=== PATIENT | male | born 1955 | race Caucasian/White ===

== ENCOUNTER 2016-08-15 05:39 | Inpatient (IN) | payer BC ==
[2016-08-01 12:51] LABS: HEMATOCRIT 45.2 % (42.0-52.0); HEMOGLOBIN 15.9 gm/dL (14.0-18.0); MCH 33.8 pg (26.0-34.0); MCHC 35.2 g/dL (28.0-37.0); RBC 4.7 mil/uL (4.50-6.00); RDW 14.2 % (10.5-14.5); WBC 6.7 thou/uL (4.0-11.0)
[2016-08-01 12:54] LABS: URINE BLOOD NEGATIVE (Negative); URINE COLOR YELLOW; URINE GLUCOSE-RANDOM* NEGATIVE (Negative); URINE KETONES TRACE (Negative); URINE LEUKOCYTES-REFLEX TRACE (Negative); URINE PROTEIN (DIPSTICK) NEGATIVE (Negative); URINE SPECIFIC GRAVITY 1.025 (1.003-1.035)
[2016-08-01 12:56] LABS: URINE BILIRUBIN NEGATIVE (Negative)
[2016-08-01 12:57] LABS: ICTOTEST (BILI CONFIRMATORY) Negative (Negative)
[2016-08-01 13:06] LABS: ALBUMIN 3.6 g/dL (3.4-5.0); CALCIUM 9.3 mg/dL (8.5-10.1); CREATININE 0.9 mg/dL (0.7-1.3); INR 1.2; POTASSIUM 4.3 mmol/L (3.5-5.1); PROTIME 12.9 Seconds (9.3-11.4); TOTAL BILIRUBIN 2.1 mg/dL (<0.1-1.0)
[2016-08-15] VITALS (8 sets, daily range): BP systolic 91–110; BP diastolic 53–68
[~2016-08-15] VITALS: Ht 193 cm; Wt 120.6 kg
--- NOTE | ~2016-08-15 | EKG ---
[address] [address] ELECTROCARDIOGRAM REPORT Name: NELIA MURPHY Room #: PRE IN [facility]#: [id number] Admission: Attend Phys: Kam Silva MD Discharge: Date of : 55 Report #: [id number] THIS REPORT FOR: //name// [facility] Test Date: 2016-08-01 Test Time: 12:53:03 Pat Name: NELIA MURPHY Department: Room: Gender: Supervisor [employer]: ALTON SHELTON : 1955 Requested By: Kam Silva Order Number: [id number] MD: Johnnie Larkin Measurements Intervals [place] Rate: 62 P: 51 UT: 116 QRS: 65 QRSD: 115 T: 67 QT: 451 QTc: 458 Interpretive Statements Sinus rhythm Borderline short UT interval Nonspecific intraventricular conduction delay Probable inferior infarct, old No previous ECG available for comparison Electronically Signed On 08-01-2016 22:03:09 CDT by Johnnie Larkin [email or web address] <ELECTRONICALLY SIGNED> By: Johnnie Larkin MD 08/01/16 [id number] Johnnie [email or web address] MD /[email or web address]
[~2016-08-15 05:39] MED LIST: ALDACTONE100 MG PO; COCONUT OIL1000 MG PO; FISH OIL WITH1 EACH PO; KRILL OIL 1,501 EACH PO; LASIX 40 MG TAB40 M2 PO; LOPRESSOR25 PO; LOPRESSOR50 PO; MEN'S MULTI-VI1 EACH PO; MILK THISTLE500 MG PO; OMEGA 3 FISH O1 EACH PO; PERCOCET 10-321 EACH PO; PROBIOTIC1 EAC1 PO; XARELTO10 MG PO
[2016-08-15] MEDS ORDERED: HYDROCODON-ACE1 EAC7 PO (14:46)
[2016-08-15] MEDS ORDERED: CVS BUFFERED A325 MG PO (14:46)
[2016-08-15] MEDS ORDERED: NEURONTIN 300300 M1 PO (14:47)
[2016-08-15] MEDS ORDERED: MS CONTIN15 MG PO (14:47)
== END 2016-08-15 18:25 | disposition home or self-care (01) | DRG 470 ==
LOC: TBA 05:39 → PRE 07:48 → 5S 10:45 → PRE 11:32 → 5S 18:25
PROVIDERS: Orthopaedic Surgery
PROC: 0SRD0J9 Replacement of Left Knee Joint with Synthetic Substitute, Cemented, Open Approach (ICD-10-PCS; principal; 2016-08-15)
DX: M17.12 Unilateral primary osteoarthritis, left knee (principal)
CPT/HCPCS: 10785; 50010; 50101; 50415; 50954; 51130; 51225; 51771; 52256; 53000; 53078; 53364; 54118; 56527; 56528; 57095; 62110; 62900; 64042; 64043; 70005